=== PATIENT | female | born 1945 | race Caucasian/White ===

== ENCOUNTER 2017-11-29 21:48 | Emergency (ER) | payer OTHER ==
[~2017-11-29] VITALS: Ht 170.2 cm; Wt 76.7 kg
[~2017-11-29 21:48] MED LIST: AMBIEN 10 MG TA10 MG; ATIVAN1 MG PO; DIOVAN40 MG; GABAPENTIN100 MG; LIPITOR20 MG; PAXIL10 MG; ZOFRAN ODT4 MG PO
[2017-11-29 23:03] VITALS: BP 116/62
== END 2017-11-29 23:05 | disposition home or self-care (01) ==
LOC: M.ERS 21:48
DX: S81.812A Laceration without foreign body, left lower leg, initial encounter (principal); E78.00 Pure hypercholesterolemia, unspecified; F32.9 Major depressive disorder, single episode, unspecified; Z88.5 Allergy status to narcotic agent; Z88.2 Allergy status to sulfonamides; X58.XXXA Exposure to other specified factors, initial encounter; Y93.89 Activity, other specified; Y92.511 Restaurant or cafe as the place of occurrence of the external cause; Y99.8 Other external cause status

== ENCOUNTER 2018-09-22 21:11 | Inpatient (IN) | payer OTHER ==
[~2018-09-22] VITALS: Ht 170.2 cm; Wt 78.7 kg
[~2018-09-22 21:11] MED LIST changes: -AMBIEN 10 MG TA10 MG; +AMBIEN 10 MG TA10 MG PO; -DIOVAN40 MG; +DIOVAN40 MG PO; -GABAPENTIN100 MG; +GABAPENTIN100 MG PO; -LIPITOR20 MG; +LIPITOR20 MG PO; -PAXIL10 MG; +PAXIL10 MG PO
[2018-09-22 21:18] VITALS: BP 124/59
[2018-09-22] MEDS ORDERED: SYMBICORT160 MCG/4. INH (21:21)
[2018-09-22] MEDS ORDERED: DOXYCYCLINE 10100 MG PO ×2 (21:22)
[2018-09-22] MEDS ORDERED: TESSALON PERLE100 MG PO (21:23)
[2018-09-22 21:43] LABS: HEMOGLOBIN 12.8 gm/dL (12.0-15.0); MCH 29.1 pg (26.0-34.0); MCHC 32.8 g/dL (28.0-37.0); MCV 88.8 fL (80.0-100.0); MPV 8.8 fl. (7.2-11.1); NUCLEATED RBCS 0 /100WBC; PLATELET COUNT* 460 thou/uL (150-400); RBC 4.39 mil/uL (4.20-5.00); RDW-CV 12.9 % (10.5-14.5); WBC 16.2 thou/uL (4.0-11.0)
[2018-09-22 21:52] LABS: CALCIUM 9.6 mg/dL (8.5-10.1); CREATININE 1.2 mg/dL (0.6-1.3); POTASSIUM 4.2 mmol/L (3.5-5.1)
[2018-09-22 21:56] LABS: ALBUMIN 3.2 g/dL (3.4-5.0); TOTAL BILIRUBIN 0.4 mg/dL (<0.1-1.0); TOTAL PROTEIN 7.1 g/dL (6.4-8.2)
[2018-09-22 22:12] LABS: ABSOLUTE LYMPHOCYTES 3.9 thou/uL (0.8-5.3); ABSOLUTE MONOCYTES 0.3 thou/uL (0.0-1.2); PLATELET ESTIMATE ADEQUATE
[2018-09-23] VITALS (7 sets, daily range): BP systolic 109–129; BP diastolic 39–75
--- NOTE | 2018-09-23 13:21 | NUR ---
pt given lunch tray
--- NOTE | 2018-09-23 15:34 | NUR ---
PT REQUESTED TO HAVING GRILLED CHEESE AND TOMATO SOUP FOR DINNER. DIETARY STATES THEY CAN ONLY BRING [employer] TO-GO BOXES FOR DINNER IN THE E.R. DIETARY STATES THEY WILL SEE WHAT THEY CAN DO.
--- NOTE | 2018-09-23 19:48 | NUR ---
RECEIVED REPORT FROM ARTURO IN THE ER. PT TRANSFERED TO TELE FLOOR AROUND 1710. PT ORIETNED TO ROOM BED AND CALL LIGHT, PT COMMUNCIATES UNDERSTANDING. ADMISSION HISTORY, EDUCATION AND ASSESSMENT COMPLETED CHARTED. IV INTACT AND INFUSING IV FLUIDS. PT DENIES PAIN OR DISCOMFORT. MEDS PER EMAR. PT UP WITH SBA TO BEDSIDE COMMODE TO URINATE. ALL NEEDS MET AT THIS TIME. FALL PRECAUTIONS IN PLACE. CALL LIGHT IS WITHIN REACH. HOURLY ROUNDING PERFORMED.
[2018-09-24] VITALS: BP 130/57
[2018-09-24 04:00] VITALS: BP 120/57
[2018-09-24 04:49] LABS: HEMATOCRIT 33.7 % (37.0-47.0); HEMOGLOBIN 11.1 gm/dL (12.0-15.0); MCH 29.7 pg (26.0-34.0); MCV 89.8 fL (80.0-100.0); MPV 9.2 fl. (7.2-11.1); RBC 3.75 mil/uL (4.20-5.00); RDW-CV 12.8 % (10.5-14.5); WBC 11.1 thou/uL (4.0-11.0)
[2018-09-24 05:08] LABS: ALBUMIN 2.7 g/dL (3.4-5.0); CREATININE 0.8 mg/dL (0.6-1.3); MAGNESIUM 1.9 mg/dL (1.8-2.4); POTASSIUM 4.8 mmol/L (3.5-5.1); TOTAL BILIRUBIN 0.4 mg/dL (<0.1-1.0); TOTAL PROTEIN 6.1 g/dL (6.4-8.2)
[2018-09-24 08:00] VITALS: BP 112/50
[2018-09-24 11:33] LABS: INFLUENZA A ANTIGEN None Detected (None Detect); INFLUENZA B ANTIGEN None Detected (None Detect)
[2018-09-24 12:00] VITALS: BP 140/50
--- NOTE | 2018-09-24 14:27 | NUR ---
ASSUMED PT CARE AT 0800. A0X4. UP WITH ASSIST, TRACING SR ON TELE. 02 SAT AT 90'S RA. DENIES PAIN. IV ACCESS INTACT. VSS, AM ASSESSMENT CHARTED. MEDS GIVEN PER MAR. HOURLY ROUNDING. WILL CONTINUE TO MONITOR.
[2018-09-24 16:00] VITALS: BP 110/46
--- NOTE | 2018-09-24 18:47 | NUR ---
PT STILL TRACING SR ON TELE. UP WITH ASSIST. GOOD AT TRANSFERING TO COMMODE AND WHEELCHAIR. IV ACCESS INTACT. FLUIDS RUNNING. DENIES PAIN. ALL NEED MET AT THIS TIME. WILL CONTINUE TO MONITOR.
[2018-09-24 20:00] VITALS: BP 142/68
[2018-09-25] VITALS: BP 163/70
[2018-09-25 04:00] VITALS: BP 121/55
--- NOTE | 2018-09-25 05:26 | NUR ---
ASSUMED CARE OF PT AFTER REPORT AT 1930. PT A&OX4. VSS. PHYSICAL ASSESSMENT COMPLETED AND CHARTED. PT ON RA/ O2 AT 2L NC WHEN SLEEPING. PT TRACING SR/PVC ON TELE. PT COMPLAINED OF CONSTIPATION- DR FOX INFORMED WITH NEW ORDERS. PT RESTED WELL ON BED. HOURLY ROUNDING OBSERVED. CALL LIGHT WITHIN REACH.
[2018-09-25 08:00] VITALS: BP 139/66
--- NOTE | 2018-09-25 10:26 | NUR ---
PT ALERT AND ORIENTED. TELE TRACKING SR AND ALL VSS ON ROOM AIR. DENIES CP, SOA. STILL HAVING NON-PRO COUGH. PT IS RIGHT AKA- TRANSFERS INDEPENDENTLY TO BSC. EDUCATED ON SAFETY AND PLAN OF CARE. PLEASE SEE ASSESSMENT FOR ADDITIONAL INFORMATION. WILL CONT TO MONITOR
--- NOTE | 2018-09-25 12:01 | NUR ---
Nutrition: Pt assessed for sepsis DX at admit. Pt is not currently on sepsis protocol. Albumin 2.7, prealb 25.7, WBC 11.1. Pt is eating regular diet. Wt: 173#. Pneumonia. No nutrition interventions needed at this time. Meds reviewed. Low risk.
--- NOTE | 2018-09-25 13:25 | EKG ---
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1945 Requested By: Daria Hull Order Number: [id number] MD: Koko Foster Measurements Intervals [place] Rate: 88 P: 75 OK: 123 QRS: 82 QRSD: 80 T: 63 QT: 330 QTc: 400 Interpretive Statements Sinus rhythm Probable left atrial enlargement Borderline right axis deviation Anteroseptal infarct, old possible Baseline wander in lead(s) I,V1,V3,V4,V5 Electronically Signed On 09-25-2018 13:25:23 CDT by Koko Foster [email or web address] <ELECTRONICALLY SIGNED> By: Koko Foster MD, [facility] 09/25/18 1325 2147 2147 Koko Foster MD, [facility] /EPI
--- NOTE | 2018-09-25 15:22 | NUR ---
Pt is A&O. Resides at home with her . States that she is pretty independent, they pay a cleaning lady and eat most of their meals out. Pt wears a right leg prothesis, uses a wc when she doesn't have her prothetic on. Pt has grab bars in her bathroom. Hx of HH, does not recall with which agency. No hx of SNF. Goal is home at mt, no needs anticipated. Following.
[2018-09-25 16:00] VITALS: BP 152/62
[2018-09-25 19:45] VITALS: BP 131/58
[2018-09-26] VITALS: BP 118/80
--- NOTE | 2018-09-26 03:22 | NUR ---
ASSUMED CARE OF PT AT 1900. PT IS ALERT AND ORIENTED. VSS. PERRLA. NO COMPLAINTS OF PAIN. STEADY GAIT. PT IS MED SURG STATUS. PT IS SLEEPING QUIETLY IN BED. RESPIRATIONS ARE EVEN AND NONLABORED. WILL CONTINUE TO MONITOR PT.
[2018-09-26 05:16] LABS: HEMATOCRIT 31.7 % (37.0-47.0); HEMOGLOBIN 10.4 gm/dL (12.0-15.0); MCH 29.6 pg (26.0-34.0); MCHC 32.9 g/dL (28.0-37.0); MPV 9.8 fl. (7.2-11.1); RBC 3.52 mil/uL (4.20-5.00); RDW-CV 13.1 % (10.5-14.5); WBC 11.7 thou/uL (4.0-11.0)
[2018-09-26 05:31] LABS: ALBUMIN 2.5 g/dL (3.4-5.0); CALCIUM 8.8 mg/dL (8.5-10.1); CREATININE 0.8 mg/dL (0.6-1.3); POTASSIUM 3.9 mmol/L (3.5-5.1); TOTAL BILIRUBIN 0.4 mg/dL (<0.1-1.0); TOTAL PROTEIN 5.4 g/dL (6.4-8.2)
[2018-09-26 08:00] VITALS: BP 125/55
--- NOTE | 2018-09-26 10:44 | NUR ---
8742 ASSUMED CARE OF PATIENT. PLEASE SEE DOCUMENTED ASSESSMENT. PT STATES SHE FEELS WEAKER TODAY
--- NOTE | 2018-09-26 14:12 | NUR ---
PATIENT TO MOVE TO MED/SURG FLOOR
--- NOTE | 2018-09-26 14:54 | NUR ---
PATIENT INFORMED OF PLAN TO MOVE TO THIRD FLOOR
[2018-09-26 16:00] VITALS: BP 122/60
--- NOTE | 2018-09-26 18:35 | NUR ---
PATIENT IS PROGRESSSING TOWARDS GOALS. REMAINS AFEBRILE AND ON ROOM AIR. HAS SHOWERED AND BEEN UP AD JASON. MANY STOOLS AND REFUSING MIRALAX. WILL MOVE TO THIRD FLOOR THIS EVENING.
[2018-09-26 20:00] VITALS: BP 128/59
--- NOTE | 2018-09-27 05:54 | NUR ---
PT TRANSFERED TO ROOM 310. PT ORIENTED TO ROOM. ASSESSEMENT DOCUMENTED. MEDS GIVEN PER E-MAR. IV PATENT, ABX INFUSED. PT SLEPT MOST OF SHIFT. PT UP IN WHEELCHAIR IN REES FOR PART OF SHIFT. NO REPORTS OF PAIN OR NAUSEA, BUT PT STATES HER THROAT IS STARTING TO BECOME SORE. 2L NC WORN WHILE SLEEPING. WILL CONTINUE WITH PLAN OF CARE.
[2018-09-27 08:00] VITALS: BP 98/48
[2018-09-27 16:32] VITALS: BP 128/53
--- NOTE | 2018-09-27 17:11 | NUR ---
PATIENT USING WHEELCHAIR IN HALLWAYS. PATIENT C/O SOA THIS AFTERNOON, 02 SAT 95%. BREATHING TREATMENTS SCHEDULED. PATIENT HAD STUMP GUIDE FITTED THIS AFTERNOON. PT TO SEE PATIENT TOMORROW. IV ABX INFUSED ORDERED. PATIENT REQUESTING SOMETHING FOR INDIGESTION THIS EVENING, [place] GIVEN.
[2018-09-27 20:16] VITALS: BP 130/56
--- NOTE | 2018-09-28 06:43 | NUR ---
PATIENT SLEPT PART OF THE NIGHT. IV ANTIBIOTICS WERE GIVEN ORDERED. PATIENT HAD NO COMPLAINTS OF PAIN. PATIENT IS POSSIBLY GOING HOME TODAY. WILL CONTINUE TO MONITOR.
[2018-09-28] MEDS ORDERED: IPRAT-ALBUT 0.5-3 ML INH ×2 (07:09)
[2018-09-28] MEDS ORDERED: PREDNISONE 10 M10 MG PO ×2 (07:09)
[2018-09-28] MEDS ORDERED: PULMICORT0.5 MG/22 INH ×2 (07:09)
[2018-09-28] MEDS ORDERED: NEBULIZER MISCELL ×2 (07:09)
[2018-09-28] MEDS ORDERED: FLUCONAZOLE 10100 MG PO ×2 (07:09)
[2018-09-28] MEDS ORDERED: LEVAQUIN 750 M750 MG PO ×2 (07:09)
[2018-09-28 09:10] VITALS: BP 143/68
[2018-09-28 11:03] VITALS: BP 143/68
--- NOTE | 2018-09-28 11:37 | NUR ---
Pt to dc home with today. SW met with pt to discuss safe dc planning and follow ups at dc. SW discussed possible HH but pt declined need and said she would not be homebound. Pt agreeable to pulmonary rehab OP; [facility] called and spoke with pulmonary rehab who plans to call pt at dc to follow in maintenance program until they were able to follow in regular program, insurance approval, etc. Pt very pleased with her hospital stay and especially care received from Dr Reich.
[2018-09-28 11:41] VITALS: BP 143/68
--- NOTE | 2018-09-28 12:15 | NUR ---
PATIENT DISCHARGED TO HOME. DISCHARGE PAPERS REVIEWED AND SIGNED. PRESCRIPTIONS CALLED TO PHARMACY AND INFORMATION SHEETS GIVEN. IV REMOVED. PATIENT DENIES ANY FURTHER NEEDS. PATIENT TAKEN BY WHEELCHAIR TO EXIT. LEFT WITH .
--- NOTE | 2018-09-28 13:57 | NUR ---
PT WAS DISCHARGED FROM HOSPITAL BEFORE P.T. EVAL COULD BE COMPLETED.
[2018-09-29] MEDS ORDERED: VALSARTAN-HCTZ1 EACH PO (19:28)
[2018-09-29] MEDS ORDERED: COMPRESSION TH1 EACH MISCELL (20:34)
[2018-10-01 23:05] LABS: ADENOVIRUS Negative (Negative); INFLUENZA A Negative (Negative); INFLUENZA B Negative (Negative); METAPNEUMOVIRUS Negative (Negative); PARAINFLUENZA 1 Negative (Negative); PARAINFLUENZA 2 Negative (Negative); PARAINFLUENZA 3 Negative (Negative); RHINOVIRUS Negative (Negative); RSV A Negative (Negative); RSV B Negative (Negative)
== END 2018-09-28 12:15 | disposition home or self-care (01) | DRG 871 ==
LOC: M.ERS 21:11 → M.2W 22:20 → M.TBA-ER 22:20 → M.2W 09-23 17:29 → M.3W 09-26 19:42
PROVIDERS: Internal Medicine; Nurse Practitioner Family; ADMIT Internal Medicine
DX: A41.9 Sepsis, unspecified organism (principal); J96.01 Acute respiratory failure with hypoxia; J15.9 Unspecified bacterial pneumonia; F32.9 Major depressive disorder, single episode, unspecified; E78.00 Pure hypercholesterolemia, unspecified; E86.0 Dehydration; G25.81 Restless legs syndrome; K59.00 Constipation, unspecified; Z89.511 Acquired absence of right leg below knee; Z88.6 Allergy status to analgesic agent; Z79.899 Other long term (current) drug therapy

== ENCOUNTER 2018-09-29 19:10 | Emergency (ER) | payer OTHER ==
[~2018-09-29] VITALS: Ht 172.7 cm; Wt 76.7 kg
[~2018-09-29 19:10] MED LIST changes: +DOXYCYCLINE 10100 MG PO; +FLUCONAZOLE 10100 MG PO; +IPRAT-ALBUT 0.5-3 ML INH; +LEVAQUIN 750 M750 MG PO; +NEBULIZER MISCELL; +PREDNISONE 10 M10 MG PO; +PULMICORT0.5 MG/22 INH; +SYMBICORT160 MCG/4. INH; +TESSALON PERLE100 MG PO
[2018-09-29] MEDS ORDERED: VALSARTAN-HCTZ1 EACH PO (19:28)
[2018-09-29 20:02] LABS: HEMATOCRIT 33.8 % (37.0-47.0); HEMOGLOBIN 11.2 gm/dL (12.0-15.0); MCH 29.3 pg (26.0-34.0); MCHC 33.1 g/dL (28.0-37.0); MCV 88.6 fL (80.0-100.0); NUCLEATED RBCS 0 /100WBC; PLATELET COUNT* 328 thou/uL (150-400); RBC 3.81 mil/uL (4.20-5.00); RDW-CV 13.5 % (10.5-14.5); WBC 12.1 thou/uL (4.0-11.0)
[2018-09-29 20:08] LABS: ANION GAP 9 mmol/L (7-16); BUN 19 mg/dL (7-18); CALCIUM 9.1 mg/dL (8.5-10.1); CHLORIDE 105 mmol/L (98-107); CO2 30 mmol/L (21-32); CREATININE 1.1 mg/dL (0.6-1.3); GLUCOSE 140 mg/dL (70-99); POTASSIUM 4.2 mmol/L (3.5-5.1); SODIUM 144 mmol/L (136-145)
[2018-09-29 20:21] LABS: NT-PRO BRAIN NAT PEPTIDE 1050 pg/mL (<300); TROPONIN-I LEVEL <0.06 ng/mL (<0.06)
[2018-09-29 20:27] LABS: ABSOLUTE LYMPHOCYTES 0.8 thou/uL (0.8-5.3); ABSOLUTE MONOCYTES 0.7 thou/uL (0.0-1.2); ABSOLUTE NEUTROPHILS 10.5 thou/uL (1.6-8.1); ATYPICAL LYMPHS 1 %; PLATELET ESTIMATE ADEQUATE
[2018-09-29] MEDS ORDERED: COMPRESSION TH1 EACH MISCELL (20:34)
[2018-09-29 21:21] VITALS: BP 127/69
--- NOTE | 2018-10-02 13:39 | EKG ---
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[place] : 1945 Requested By: Evon Pearson Order Number: [id number] MD: Leif Garvey Measurements Intervals [place] Rate: 85 P: 67 [place]: 110 QRS: 68 QRSD: 85 T: 44 QT: 342 QTc: 407 Interpretive Statements Sinus rhythm Borderline short [place] interval Baseline wander in lead(s) V1 Compared to ECG 09/22/2018 21:47:33 no change Electronically Signed On 10-02-2018 13:39:38 CDT by Leif Garvey [email or web address] <ELECTRONICALLY SIGNED> By: Leif Garvey MD, [facility] 10/02/18 1339 47 47 Leif Garvey MD, [facility] /EPI
== END 2018-09-29 21:22 | disposition home or self-care (01) ==
LOC: M.ERS 19:10
PROVIDERS: Nurse Practitioner Family
DX: R60.0 Localized edema (principal); F32.9 Major depressive disorder, single episode, unspecified; E78.00 Pure hypercholesterolemia, unspecified; Z88.5 Allergy status to narcotic agent; Z88.2 Allergy status to sulfonamides

== ENCOUNTER 2019-02-04 12:05 | Emergency (ER) | payer OTHER ==
[~2019-02-04] VITALS: Ht 170.2 cm; Wt 77.1 kg
[~2019-02-04 12:05] MED LIST changes: +COMPRESSION TH1 EACH MISCELL; +VALSARTAN-HCTZ1 EACH PO
[2019-02-04] MEDS ORDERED: LEVAQUIN 750 M750 MG PO ×3 (13:09→13:15)
[2019-02-04] MEDS ORDERED: SINGULAIR 10 MG10 M1 PO (13:09)
[2019-02-04] MEDS ORDERED: PREDNISONE50 MG PO (13:09)
[2019-02-04 13:28] VITALS: BP 140/79
== END 2019-02-04 13:29 | disposition home or self-care (01) ==
LOC: M.ERS 12:05
DX: J44.9 Chronic obstructive pulmonary disease, unspecified (principal); F32.9 Major depressive disorder, single episode, unspecified; E78.00 Pure hypercholesterolemia, unspecified; Z87.01 Personal history of pneumonia (recurrent); Z88.5 Allergy status to narcotic agent; Z88.2 Allergy status to sulfonamides

== ENCOUNTER 2019-05-03 12:06 | Emergency (ER) | payer OTHER ==
[~2019-05-03] VITALS: Ht 170.2 cm; Wt 79.4 kg
[~2019-05-03 12:06] MED LIST changes: +PREDNISONE50 MG PO; +SINGULAIR 10 MG10 M1 PO
[2019-05-03 12:51] LABS: ABSOLUTE EOSINOPHILS 0.3 thou/uL (0.0-0.7); ABSOLUTE LYMPHOCYTES 1.3 thou/uL (0.8-5.3); ABSOLUTE MONOCYTES 0.5 thou/uL (0.0-1.2); ABSOLUTE NEUTROPHILS 5.8 thou/uL (1.6-8.1); BASOPHILS 0.5 %; HEMATOCRIT 37.6 % (37.0-47.0); HEMOGLOBIN 12.5 gm/dL (12.0-15.0); LYMPHOCYTES 16.4 %; MCH 29.2 pg (26.0-34.0); MCHC 33.3 g/dL (28.0-37.0); MCV 87.8 fL (80.0-100.0); MONOCYTES 6.8 %; MPV 9.3 fl. (7.2-11.1); NUCLEATED RBCS 0 /100WBC; PLATELET COUNT* 277 thou/uL (150-400); POLYS 72.3 %; RBC 4.28 mil/uL (4.20-5.00); RDW-CV 13.6 % (10.5-14.5); WBC 8.1 thou/uL (4.0-11.0)
[2019-05-03 12:53] LABS: INFLUENZA A ANTIGEN Positive (Negative); INFLUENZA B ANTIGEN Negative (Negative)
[2019-05-03 12:59] LABS: CALCIUM 8.5 mg/dL (8.5-10.1); CREATININE 0.8 mg/dL (0.6-1.3); POTASSIUM 4.6 mmol/L (3.5-5.1)
[2019-05-03 13:10] LABS: ALBUMIN 3.5 g/dL (3.4-5.0); TOTAL BILIRUBIN 0.3 mg/dL (<0.1-1.0)
[2019-05-03] MEDS ORDERED: TAMIFLU75 MG PO ×2 (15:04)
[2019-05-03] MEDS ORDERED: VENTOLIN HFA 1818 GM INH (15:56)
[2019-05-03] MEDS ORDERED: MEDROLDOSEPACK PO (15:56)
[2019-05-03 16:48] VITALS: BP 142/60
--- NOTE | 2019-05-03 17:10 | EKG ---
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1945 Requested By: Evon Pearson Order Number: [id number] MD: Koko Foster Measurements Intervals [place] Rate: 72 P: 66 MN: 121 QRS: 67 QRSD: 167 T: 60 QT: 363 QTc: 398 Interpretive Statements Sinus rhythm Nonspecific intraventricular conduction delay Compared to ECG 09/29/2018 19:48:34 Intraventricular conduction delay now present Electronically Signed On 05-03-2019 17:09:26 REEL SLITTER by Koko Foster [email or web address] <ELECTRONICALLY SIGNED> By: Koko Foster MD, [facility] 05/03/19 1709 1244 1244 Koko Foster MD, [facility] /EPI
== END 2019-05-03 16:51 | disposition home or self-care (01) ==
LOC: M.ERS 12:06
PROVIDERS: Nurse Practitioner Family
DX: J10.1 Influenza due to other identified influenza virus with other respiratory manifestations (principal); E78.00 Pure hypercholesterolemia, unspecified; J44.9 Chronic obstructive pulmonary disease, unspecified; I10 Essential (primary) hypertension; Z88.2 Allergy status to sulfonamides; Z88.5 Allergy status to narcotic agent